=== PATIENT | male | born 1965 | race Caucasian/White ===

== ENCOUNTER 2016-02-21 00:34 | Emergency (ER) | payer SELFPAY ==
[2016-02-21 00:34] VITALS: BMI 21.6
[2016-02-21 00:41] VITALS: BP 155/86; PULSE 85; TEMP 98.6
--- NOTE | 2016-02-21 00:56 | EDPRACDOC ---
- General Information Chief Complaint: Flu-Like Symptoms Stated Complaint: HEADACHE/CONGESTION Time Seen by Provider: 02/21/16 00:45 Information Source: Patient Mode Of Arrival: Car Home Medications: Home Medications Amoxicillin Trihydrate [Amoxicillin] 500 mg PO TID #30 tab 06/14/15 Diclofenac Sodium 75 mg PO TID #20 tablet. 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 NASAL CONGESTION. A COUPLE OF WEEKS, WORSE THE PAST FEW DAYS, WORSE BENDING FORWARD. NO FEVER. Current Symptoms: Reports: Headache, Nasal Symptoms. Denies: Earache, Fever ED Past Medical History - History Reviewed Yes Nurses notes reviewed and agree except as marked - Patient Medical History Psychological History: Denies: Depression - Social Medical History Smoking Status: Heavy tobacco smoker (5 or more cigarettes/day or daily pipe/ cigar) EDM Review of Systems - Review of Systems ROS Negative Except as Marked: Yes All systems reviewed and were negative except as marked Constitutional: No Symptoms Reported. negative: Fever Eyes: No Symptoms Reported Ears: No Symptoms Reported Respiratory: No Symptoms Reported Cardiovascular: No Symptoms Reported Gastrointestinal: No Symptoms Reported Genitourinary: No Symptoms Reported - Physical Exam Constitutional: Alert (Awake), No apparent distress Oriented to: Time, Person, Place Last recorded Vital Signs: Last Vital Signs Temp 98.6 F 02/21/16 00:39 Pulse 85 02/21/16 00:39 Resp 20 02/21/16 00:39 BP 155/86 02/21/16 00:39 Pulse Ox 98 02/21/16 00:39 Oxygen Pulse Oxygen Saturation 98 O2 Device Room Air Oxygen Flow Rate Fraction of Inspired Oxygen ( FIO2) - HEENT Head: Normal ( normocephalic) Eye Exam: Normal (PERRL, EOMI, Sclera white) Oropharynx: Normal (Pharynx:Moist without exudate,Gums-no swelling) Tympanic Membrane: Normal ENT EAC: Normal TMJ: Normal Nose: No Symptoms Reported (septum midline) Neck: Normal (FROM, trachea at midline) HEENT Comment: MILD MAXILLARY TTP B/L - Respiratory/Cardiovascular Respiratory: Normal - CTA (BBS clear to auscultation without adventitious sounds ) Cardiovascular: Normal (RRR without murmur, gallop or rub) - GI Auscultation: Normal (NABS) Palpation: Normal (Soft,No rebound or guarding, non distended) Tenderness: Non tender Rincon's Sign: Negative - Musculoskeletal Back: Normal (Non-Tender) Extremities: Normal (Normal tone, Pulses 2+ No cyanosis or edema, FROM) - Integumentary Skin: Normal, Warm, Dry Lymphatics: Normal (no adenopathy) - Neurologic Memory Impaired: Normal Motor Function: Normal (Normal tone, Pulses 2+ No cyanosis or edema, FROM) Cranial Nerve: Normal (CN II-X11 intact sensation, strength 5/5) Cerebellar: Normal Mood Description: Normal Perception: Normal Decision Time to Discharge: 00:58 - Departure Yes I personally saw and evaluated the patient. Disposition: Home Condition: Stable Final Diagnosis: Acute sinusitis Education/Counseling Given To: Patient Education/Counseling Given Regarding: Diagnosis Referrals: Son Alvarado DO [Staff Physician] - One Week Prescriptions: Amoxicillin/Potassium Clav [Augmentin 875-125 Tablet] 1 each PO BID #19 tablet
[2016-02-21] MEDS ORDERED: AMOXICILLIN/CLAVULANATE 875 MG TAB PO ONE (00:58)
[2016-02-21] MEDS ORDERED: ACETAMINOPHEN 325 MG/TAB TABLET PO ONE (01:24)
== END 2016-02-21 01:28 | disposition home or self-care (01) ==
LOC: ED 00:34
DX: J01.90 Acute sinusitis, unspecified (principal)
CPT/HCPCS: 99282; J3490